=== PATIENT | male | born 1990 | race Hispanic/Latino ===

== ENCOUNTER 2021-10-24 20:27 | Emergency (ER) | payer SELFPAY ==
[2021-10-24 20:47] VITALS: BP 122/78
[2021-10-25] MEDS ORDERED: HYDROcodone/ACETAMINOPHEN 5-325 MG TAB PO ONE (10:58)
[2021-10-25] MEDS ORDERED: KETOROLAC 10 MG TAB PO ONE (10:58)
[2021-10-25] MEDS ORDERED: CYCLOBENZAPRINE 10 MG TAB PO ONE (10:58)
--- NOTE | 2021-10-25 11:00 | Emergency Department Report ---
ED Back Pain/Injury HPI - General Chief Complaint: Back Pain/Injury Stated Complaint: BACK PAIN Source: patient Limitations: No Limitations - History of Present Illness Initial Comments: 30 YO male hx back pain DJD, presents with back pain x 2 days, atraumatic pain, similar to his previous episodes. he denies weakness, numbness o or tingling of the extremities, pain does not radiate to his abdomen or groin. Ambulates without assistance. Otherwise no bladder or bowel dysfunction, no headache dizziness or vision changes no nausea vomiting abdominal pain, no fever chills, MD Complaint: back pain -: year(s) Similar Symptoms Previously: Yes Radiation: none Severity: moderate Quality: aching Consistency: constant, intermittent Improves With: immobilization Worsens With: movement, sitting upright, walking Context: while lifting, turning/twisting, bending Associated Symptoms: denies other symptoms - Related Data Previous Rx's Medication Instructions Recorded Last Taken Type Cyclobenzaprine [Flexeril] 10 mg PO TID PRN #30 10/25/21 Unknown Rx Diclofenac [Lakshmi Singer] 75 mg PO BID PRN #20 tablet 10/25/21 Unknown Rx Lidocaine [Salonpas] 1 each TP DAILY #12 patch 10/25/21 Unknown Rx Allergies Allergy/AdvReac Type Severity Reaction Status Date / Time ibuprofen Allergy Hives Verified 10/24/21 20:47 ED Review of Systems ROS: Stated complaint: BACK PAIN Other details as noted in HPI Constitutional: no symptoms reported Eyes: denies: as per HPI ENT: denies: as per HPI Respiratory: denies: cough Cardiovascular: denies: palpitations Gastrointestinal: denies: abdominal pain, nausea, vomiting Genitourinary: denies: urgency, dysuria, frequency Musculoskeletal: back pain Neurological: denies: headache, numbness, paresthesias ED Past Medical Hx - Past Medical History Previous Medical History?: Yes Additional medical history: Angina. DJD (Lower Back). Brain Cyst - Surgical History Past Surgical History?: No - Social History Smoking Status: Current Every Day Smoker Substance Use Type: Alcohol - Medications Home Medications: Home Medications Medication Instructions Recorded Confirmed Last Taken Type Cyclobenzaprine [Flexeril] 10 mg PO TID PRN #30 10/25/21 Unknown Rx Diclofenac [Lakshmi Singer] 75 mg PO BID PRN #20 tablet 10/25/21 Unknown Rx Lidocaine [Salonpas] 1 each TP DAILY #12 patch 10/25/21 Unknown Rx ED Physical Exam - General Limitations: No Limitations General appearance: alert, in no apparent distress - Head Head exam: Absent: atraumatic - Eye Eye exam: Present: normal appearance - ENT ENT exam: Present: normal exam, normal orophraynx - Neck Neck exam: Present: normal inspection - Respiratory Respiratory exam: Present: normal lung sounds bilaterally. Absent: respiratory distress, wheezes - Cardiovascular Cardiovascular Exam: Present: regular rate, normal heart sounds - GI/Abdominal GI/Abdominal exam: Present: soft. Absent: distended, tenderness - External exam: Present: normal external exam - Extremities Exam Extremities exam: Present: normal inspection, full ROM, normal capillary refill. Absent: tenderness - Back Exam Back exam: Present: normal inspection, full ROM, tenderness, paraspinal tenderness (R) - Neurological Exam Neurological exam: Present: alert, oriented X3, CN II-XII intact, normal gait - Psychiatric Psychiatric exam: Present: normal affect, normal mood - Skin Skin exam: Present: warm, dry, intact, normal color. Absent: diaphoretic ED Course Vital Signs 10/24/21 20:27 Temperature 98 F Pulse Rate 78 Respiratory 18 Rate Blood Pressure 122/78 O2 Sat by Pulse 100 Oximetry ED Medical Decision Making - Medical Decision Making 30 YO male hx back pain DJD, presents with back pain x 2 days, atraumatic pain, similar to his previous episodes. he denies weakness, numbness o or tingling of the extremities, pain does not radiate to his abdomen or groin. Ambulates without assistance. Otherwise no bladder or bowel dysfunction, no headache dizziness or vision changes no nausea vomiting abdominal pain, no fever chills, Back pain is similar to previous, improved with pain management in the emergency department, discharged home with supportive therapy NSAIDs activity modification and referral. Have also encouraged patient does not need opioid for chronic pain and can be managed with supportive therapy. Critical care attestation.: If time is entered above; I have spent that time in minutes in the direct care of this critically ill patient, excluding procedure time. ED Disposition Clinical Impression: Acute exacerbation of chronic low back pain Disposition: HOME / SELF CARE / HOMELESS Is pt being admited?: No Does the pt Need Aspirin: No Condition: Stable Instructions: What You Need to Know About Chronic Back Pain, Chronic Back Pain Prescriptions: Cyclobenzaprine [Flexeril] 10 mg PO TID PRN #30 PRN Reason: Muscle Spasm Lidocaine [Salonpas] 1 each TP DAILY #[address] [Voltaren Dr] 75 mg PO BID PRN #20 tablet PRN Reason: Pain, Moderate (4-6) Referrals: NOHELIA DAWKINS MD [Referring] - 3-5 Days
== END 2021-10-25 11:44 | disposition home or self-care (01) ==
LOC: ED 20:27
DX: M54.50 Low back pain, unspecified (principal); G89.29 Other chronic pain; F17.200 Nicotine dependence, unspecified, uncomplicated; Z72.89 Other problems related to lifestyle; Z98.890 Other specified postprocedural states; Z88.6 Allergy status to analgesic agent; Z79.899 Other long term (current) drug therapy
CPT/HCPCS: 99283

== ENCOUNTER 2021-10-26 19:19 | Emergency (ER) | payer SELFPAY ==
[2021-10-26] MEDS ORDERED: traMADol 50 MG TAB PO ONE (21:17)
--- NOTE | 2021-10-26 21:23 | Emergency Department Report ---
ED Back Pain/Injury HPI - General Chief Complaint: Back Pain/Injury Stated Complaint: BACK PAIN Time Seen by Provider: 10/26/21 21:17 Source: EMS Limitations: No Limitations - History of Present Illness Initial Comments: Patient 30-year-old male with history of degenerative disc disease lumbar presents for low back pain 5/10 rating bilateral lower extremities. Patient denies fall injury or trauma pain exacerbated by bending reaching and twisting. There is no numbness tingling or paralysis. Patient denies also decrease in bowel or bladder function. This is an acute on chronic problem for this patient. Patient ambulated into ED today patient is alert oriented x3 and amatory with steady gait at this time. MD Complaint: back pain - Related Data Previous Rx's Medication Instructions Recorded Last Taken Type Cyclobenzaprine [Flexeril] 10 mg PO TID PRN #30 10/25/[address] [Voltaren Dr] 75 mg PO BID PRN #20 tablet 10/25/21 Unknown Rx Lidocaine [Salonpas] 1 each TP DAILY #12 patch 10/25/21 Unknown Rx methOCARBAMOL [Robaxin TAB] 500 mg PO TID PRN #30 tab 10/25/21 Unknown Rx Cyclobenzaprine [Flexeril] 10 mg PO TID PRN #30 tab 10/26/[address] [Voltaren Dr] 75 mg PO TID PRN #30 tablet 10/26/21 Unknown Rx Allergies Allergy/AdvReac Type Severity Reaction Status Date / Time ibuprofen Allergy Hives Verified 10/24/21 20:47 ED Review of Systems ROS: Stated complaint: BACK PAIN Other details as noted in HPI Constitutional: denies: chills, fever Eyes: denies: eye pain, eye discharge, vision change ENT: denies: ear pain, throat pain Respiratory: denies: cough, shortness of breath, wheezing Cardiovascular: denies: chest pain, palpitations Endocrine: no symptoms reported Gastrointestinal: denies: abdominal pain, nausea, diarrhea Genitourinary: denies: urgency, dysuria Musculoskeletal: back pain Skin: denies: rash, lesions Neurological: denies: headache, weakness, paresthesias, vertigo Psychiatric: denies: anxiety, depression Hematological/Lymphatic: denies: easy bleeding, easy bruising ED Past Medical Hx - Past Medical History Additional medical history: Angina. DJD (Lower Back). Brain Cyst - Social History Smoking Status: Current Every Day Smoker Substance Use Type: Alcohol - Medications Home Medications: Home Medications Medication Instructions Recorded Confirmed Last Taken Type Cyclobenzaprine [Flexeril] 10 mg PO TID PRN #30 10/25/[address] [Voltaren Dr] 75 mg PO BID PRN #20 tablet 10/25/21 Unknown Rx Lidocaine [Salonpas] 1 each TP DAILY #12 patch 10/25/21 Unknown Rx methOCARBAMOL [Robaxin TAB] 500 mg PO TID PRN #30 tab 10/25/21 Unknown Rx Cyclobenzaprine [Flexeril] 10 mg PO TID PRN #30 tab 10/26/[address] [Voltaren Dr] 75 mg PO TID PRN #30 tablet 10/26/21 Unknown Rx ED Physical Exam - General Limitations: No Limitations General appearance: alert, in no apparent distress - Head Head exam: Present: normocephalic, normal inspection - Eye Eye exam: Present: EOMI Pupils: Present: normal accommodation - ENT ENT exam: Present: mucous membranes moist - Neck Neck exam: Present: normal inspection, full ROM. Absent: tenderness, lymphadenopathy - Respiratory Respiratory exam: Present: normal lung sounds bilaterally. Absent: respiratory distress - Cardiovascular Cardiovascular Exam: Present: regular rate, normal rhythm, normal heart sounds. Absent: systolic murmur, diastolic murmur, rubs, gallop - GI/Abdominal GI/Abdominal exam: Present: soft, normal bowel sounds. Absent: distended, tenderness - Rectal Rectal exam: Present: deferred - Extremities Exam Extremities exam: Present: normal inspection, full ROM, normal capillary refill - Back Exam Back exam: Present: normal inspection, full ROM, muscle spasm. Absent: paraspinal tenderness, vertebral tenderness - Expanded Back Exam Expanded Back exam: Absent: saddle anesthesia Back exam: Positive Straight Leg Raise: Left, Right - Neurological Exam Neurological exam: Present: alert, oriented X3, CN II-XII intact, normal gait, reflexes normal. Absent: motor sensory deficit - Psychiatric Psychiatric exam: Present: normal affect, normal mood - Skin Skin exam: Present: warm, dry, intact, normal color. Absent: rash ED Course Vital Signs 10/26/21 19:44 Temperature 98.1 F Pulse Rate 88 Respiratory 14 Rate Blood Pressure 134/94 [Right] O2 Sat by Pulse 100 Oximetry ED Medical Decision Making - Medical Decision Making Patient is alert oriented x3 patient amatory with steady gait strength is 5 5 bilateral lower extremity patient states positive straight leg bilaterally. There is no saddle numbness. No weakness paralysis. There is been no new fall or injury. Plan refill NSAIDs, muscle relaxants, back exercises follow-up with orthopedics in 2 to 3 days. Return to emergency department should symptoms worsen. Patient verbalized agreement understanding discharge plan. Patient D C'd home in stable condition at this time. Critical care attestation.: If time is entered above; I have spent that time in minutes in the direct care of this critically ill patient, excluding procedure time. ED Disposition Clinical Impression: Low back strain Qualifiers: Encounter type: initial encounter Qualified Code(s): S39.012A - Strain of muscle, fascia and tendon of lower back, initial encounter Disposition: HOME / SELF CARE / HOMELESS Is pt being admited?: No Does the pt Need Aspirin: No Condition: Stable Instructions: Low Back Sprain or Strain Rehab-SportsMed Additional Instructions: Take medication as prescribed, follow-up with your doctor in 2 to 3 days. Return to emergency department should symptoms worsen Prescriptions: Cyclobenzaprine [Flexeril] 10 mg PO TID PRN #30 tab PRN Reason: Muscle Spasm Diclofenac Dr [Voltareryder Singer] 75 mg PO TID PRN #30 tablet PRN Reason: Pain , Severe (7-10) Referrals: [facility] [Provider Group] - 3-5 Days Forms: Work/School Release Form(ED) Time of Disposition: 21:23
[2021-10-26 23:16] VITALS: BP 137/91
== END 2021-10-26 23:16 | disposition home or self-care (01) ==
LOC: ED 19:19
DX: S39.012A Strain of muscle, fascia and tendon of lower back, initial encounter (principal); F17.200 Nicotine dependence, unspecified, uncomplicated; Z72.89 Other problems related to lifestyle; Z88.6 Allergy status to analgesic agent; Z79.899 Other long term (current) drug therapy; X58.XXXA Exposure to other specified factors, initial encounter; Y93.89 Activity, other specified; Y92.89 Other specified places as the place of occurrence of the external cause; Y99.8 Other external cause status
CPT/HCPCS: 99283